=== PATIENT | male | born 1955 | race Caucasian/White ===

== ENCOUNTER 2022-12-12 13:19 | Outpatient (CLI) | payer OTHER ==
--- NOTE | 2022-12-12 16:42 | XRAY Report ---
PROCEDURE: Foot 3 View RT INDICATIONS: RT FOOT PX TECHNIQUE: 3 views of the foot were acquired. COMPARISON: None. FINDINGS: Bones: No fractures or dislocations. Hammertoe deformities 2 through 5. Mild first IP and MTP degen eration including sclerosis. Mild degenerative sclerosis at the talonavicular articulation. Prominent plantar calcaneal spur. Possible pes planus deformity though not well assessed without weight-bearin g views. No suspicious bony lesions. Soft tissues: No suspicious soft tissue calcifications or masses. IMPRESSION: 1. Scattered mild degenerative changes. 2. Possible pes planus deformity. Recommend weightbearing views to assess plantar arch. Reviewed by: Dulce Butt MD on 12/12/2022 4:41 PM PDT Approved by: Dulce Butt MD on 12/12/2022 4:41 PM PDT Station ID: [id number]
== END 2022-12-12 13:20 | disposition home or self-care (01) ==
LOC: DI 13:19
PROVIDERS: ATTEND Podiatrist
DX: M19.071 Primary osteoarthritis, right ankle and foot (principal)

== ENCOUNTER 2023-08-07 15:05 | Outpatient (CLI) | payer MEDICARE, OTHER ==
[2023-08-07 17:59] LABS: HCT - HEMATOCRIT 47.6 % (42.0-52.0)
[2023-08-07 18:35] LABS: CALCIUM 9.5 mg/dL (8.5-10.3); CREATININE 1.1 mg/dL (0.6-1.3); POTASSIUM 4.7 mmol/L (3.5-4.5)
== END 2023-08-07 15:06 | disposition home or self-care (01) ==
LOC: LAB.N 15:05
PROVIDERS: ATTEND Orthopaedic Surgery
DX: Z01.812 Encounter for preprocedural laboratory examination (principal)
CPT/HCPCS: 36415; 80048; 85014; 85049